=== PATIENT | male | born 1980 | race Caucasian/White ===

== ENCOUNTER 2023-10-08 16:19 | Outpatient (CLI) | payer MEDICAID, SELFPAY | END 2023-10-08 16:20 | disposition home or self-care (01) | LOC: LKVREF 16:20 | PROVIDERS: PCP Orthopaedic Surgery; Visit Provider Emergency Medicine | DX: Z01.818 Encounter for other preprocedural examination (principal) | CPT/HCPCS: 80048 ==

== ENCOUNTER 2023-10-24 06:10 | Day surgery (SDC) | payer MEDICAID, SELFPAY ==
[2023-10-24] MEDS: LACTATED RINGERS 1000 ML 1,000 ML 100 ML IV (06:20)
[2023-10-24 06:34] VITALS: BP 119/81; PULSE 74; RESP 16; TEMP 36.5; O2SAT 97; BMI 30.8
[2023-10-24] MEDS: SODIUM CHLORIDE 0.9 % (FLUSH) 10 ML SYRINGE IVF (06:38)
--- NOTE | 2023-10-24 07:23 | W.PM.H&PU ---
History & Physical Update History & Physical Update H&P Reviewed and patient assessed: No changes noted
[2023-10-24] MEDS: CEFAZOLIN 2 GM INJ IVP (07:32)
[2023-10-24] MEDS: LIDOCAINE 1% MDV 20 ML INJECTION (07:50)
--- NOTE | 2023-10-24 08:01 | PM.ORPRC ---
Procedure Note Date of procedure: 10/24/23 Procedure: PREOPERATIVE DIAGNOSIS: 1. Right plantar foot soft tissue POSTOPERATIVE DIAGNOSIS: 1. Right plantar foot soft tissue mass PROCEDURE: 1. Right plantar foot soft tissue mass excision SURGEON: Michel Gunn MD. DIVE MASTER: Lanny Kathleen P.A.-C. An pediatric physical therapy assistant was critical for this case to aid in patient positioning, tissue retraction, limb manipulation/positioning, and closure. ANESTHESIA: Local with monitored anesthesia care IMPLANTS: None TOURNIQUET: 12 minutes at 250 mmHg ESTIMATED BLOOD LOSS: 2 mL COMPLICATIONS: None INDICATIONS: The patient is a pleasant 43-year-old male who developed a chronic, painful soft tissue mass the plantar aspect of his foot at the level of the 1st MTP joint. Mass has been present for several years. MRI revealed benign-appearing subcutaneous soft tissue mass which measured approximately 1 cm in diameter. For symptomatic relief, patient was offered surgical excision and elected to proceed. Prior to surgery, risks, benefits, and alternatives surgery were discussed with patient and informed consent was obtained. FINDINGS: Benign-appearing soft tissue mass which measured 1.2 x 1.1 x 0.8 cm located in the subcutaneous tissues of the plantar foot overlying the 1st MTP joint. DESCRIPTION OF PROCEDURE: Patient was seen preoperatively and operative site was marked. He was then brought to the operating room and placed supine on the operating table. Monitored anesthesia care was administered patient was given 2 g of Ancef preoperatively for prophylaxis. Right foot and lower leg were prepped and draped in usual sterile fashion. Surgical time-out was performed confirming patient identity surgical site and surgical procedure. 1% lidocaine was injected into the subcutaneous tissues overlying the soft tissue mass on the plantar aspect with the right foot. Right foot was elevated exsanguinated with an Esmarch and tourniquet was inflated to 250 mmHg. A longitudinal incision measuring 1-2 cm was made overlying the soft tissue mass. Incision was carried through subcutaneous tissues. The soft tissue mass was readily identified after making the incision. Mass was then sharply dissected from the surrounding soft tissues using tenotomy scissors. After circumferential dissection mass was removed and sent for pathology. The tourniquet was then released and hemostasis was achieved with electrocautery. Wound was irrigated with copious amounts of normal saline. Skin was closed with 3-0 nylon horizontal mattress sutures and sterile dressing was applied. Patient was woken from anesthesia and transferred recovery room in stable condition. PLAN: 1. Weight bear as tolerated 2. Keep wound clean and dry 3. Ice and elevation as needed for pain and swelling 4. Acetaminophen [id number] nonsteroidal anti-inflammatory medications as needed for pain control 5. Follow-up in orthopedic clinic in 10-14 days for wound check and suture removal..
[2023-10-24] MEDS: NEOMYCIN/BACITRACIN/POLYMYXIN B 1 APPLIC TOPICAL (08:07)
[2023-10-24 08:11] VITALS: BP 114/83; PULSE 78; RESP 16; TEMP 36.7; O2SAT 96
--- NOTE | 2023-10-24 08:13 | W.ANESCHARGE ---
Anesthesia Charges Start Date/Time Anesthesia Start Date: 10/24/23 Anesthesia Start Time: 07:22 Stop Date/Time Anesthesia Stop Date: 10/24/23 Anesthesia Stop Time: 08:14
[2023-10-24 08:15] VITALS: BP 104/80; PULSE 73; RESP 16; O2SAT 98
[2023-10-24 08:30] VITALS: BP 123/80; PULSE 67; RESP 16; O2SAT 96
[2023-10-24] MEDS: OxyCODONE/APAP 5-325 TABLET PO (08:34)
[2023-10-24 08:45] VITALS: BP 134/104; PULSE 68; RESP 16; O2SAT 98
[2023-10-24 09:00] VITALS: BP 129/80; PULSE 67; RESP 16; O2SAT 98
== END 2023-10-24 09:12 | disposition home or self-care (01) ==
PROVIDERS: PCP Orthopaedic Surgery; Visit Provider Orthopaedic Surgery
PROC: (CPT 28039; principal; 2023-10-24 07:30)
DX: D21.21 Benign neoplasm of connective and other soft tissue of right lower limb, including hip (principal)
CPT/HCPCS: 28039; 01480; 88304; A9270; J0690; J2250; J2704; J3010; J3490; J7120